=== PATIENT | female | born 1955 | race Caucasian/White ===

== ENCOUNTER 2016-05-23 01:12 | Inpatient (IN) ==
[2016-05-23] MEDS ORDERED: DIPRIVAN 1% 1,000 MG/100 ML BOTTLE ONE (01:13)
[2016-05-23] MEDS: DIPRIVAN 1% 1,000 MG/100 ML BOTTLE IV SCH ×7 (01:25→23:46)
[2016-05-23] MEDS ORDERED: NS 1,000 ML ONE (01:37)
[2016-05-23 01:44] LABS: URINE CULTURE NEEDED? NO; URINE MICRO REVIEW NEEDED? NO; URINE SOURCE CATH
[2016-05-23 01:44] LABS: MANUAL DIFF NEEDED? NO
[2016-05-23 01:50] LABS: BASO% 0.2 % (0.0-0.8); EOS# 0.14 X1000 (0.0-0.7); EOS% 0.9 % (0.0-10.0); HEMATOCRIT 40.2 % (37.0-47.0); HEMOGLOBIN 13.1 g/dL (12.0-16.0); IMM GRAN# 0.14 X1000 (0.0-0.04); IMM GRAN% 0.9 % (0.0-0.5); LYMPH# 3.53 X1000 (1.2-3.4); LYMPH% 23.9 % (20.5-51.1); MCH 33.2 PG (27-31); MCHC 32.6 g/dL (33-37); MCV 101.8 FL (81-99); MONO# 0.86 X1000 (0.11-0.59); MONO% 5.8 % (1.7-9.3); NEUT% 68.3 % (42.2-75.2); PLT 219 X1000 (130-400); RBC 3.95 XMIL (4.2-5.4)
[2016-05-23 01:52] LABS: BILIRUBIN URINE NEGATIVE (NEGATIVE); BLOOD URINE NEGATIVE (NEGATIVE); COLOR YELLOW; GLUCOSE URINE NEGATIVE (NEGATIVE); LEUKOCYTES URINE NEGATIVE (NEGATIVE); NITRITE URINE NEGATIVE (NEGATIVE); PH URINE 5.5; PROTEIN URINE 30 mg/dL (NEGATIVE); SP GRAVITY URINE 1.029; TURBIDITY URINE CLEAR (CLEAR); UROBILINOGEN URINE 3 mg/dL (NORMAL)
[2016-05-23 01:54] LABS: UR EPITHELIAL CELLS <10 /HPF (<10); URINE BACTERIA NEGATIVE /HPF; URINE RBC <10 /HPF (<10); URINE WBC <10 /HPF (<10)
[2016-05-23] MEDS ORDERED: NS 1,000 ML IV ONE ×2 (02:04→23:14)
[2016-05-23 02:12] LABS: AGAP 14; ALBUMIN 3.8 g/dL (3.5-5.0); ALKALINE PHOSPHATASE 72 U/L (32-104); BUN 19 mg/dL (8-22); CALCIUM 8.8 mg/dL (8.8-10.2); CHLORIDE 99 mmol/L (98-107); COSMO 288; GOT 12 U/L (10-30); GPT 11 U/L (10-36); POTASSIUM 3.9 mmol/L (3.5-5.1); SODIUM 141 mmol/L (136-145); TCO2 28 mmol/L (25-35); TOTAL BILIRUBIN 0.16 mg/dL (0.20-1.00); TOTAL PROTEIN 6.4 g/dL (6.3-8.3)
[2016-05-23 02:17] LABS: UR AMPHETAMINES QUAL NONE DETECTED (NONE DETECT); UR BARBITUATES QUAL NONE DETECTED (NONE DETECT); UR BENZODIAZEPIN QUAL PRESUMPTIVE POSITIVE (NONE DETECT); UR CANNABINOIDS QUAL PRESUMPTIVE POSITIVE (NONE DETECT); UR COCAINE QUAL NONE DETECTED (NONE DETECT); UR METHADONE QUAL NONE DETECTED (NONE DETECT); UR OPIATES QUAL PRESUMPTIVE POSITIVE (NONE DETECT); UR OXYCODONE QUAL NONE DETECTED (NONE DETECT); UR PCP QUAL NONE DETECTED (NONE DETECT)
[2016-05-23 02:29] LABS: ALLEN TEST YES; BE -0.2 mmoll (-3.0-3.0); BLOOD TYPE ARTERIAL; DRAW SITE R RADIAL; METHB 1.7 % (0.0-1.5); O2(CT) 14.7 mL/dL (15.0-23.0); PO2(98.6) 273 mmHg (60-100); SAMPLE BLOOD; SAO2 99.5 % (95.0-100.0); SRATE 12 BPM; THB 11.7 g/dL (11.5-17.4); TVOL 550 mL; pH(98.6) 7.31 (7.35-7.45)
[2016-05-23 02:31] LABS: MODALITY VENTILATOR; PCO2(98.6) 53 mmHg (35-45)
[2016-05-23] MEDS ORDERED: NORCURON ONE (03:02)
[2016-05-23] MEDS ORDERED: NORCURON IV ONE (03:07)
--- NOTE | 2016-05-23 05:08 | HISTORY AND PHYSICAL ---
Total critical care time with this patient was 38 minutes. PRIMARY CARE PHYSICIAN: She has no primary care physician. REASON FOR ADMISSION: Found unresponsive at home by her son. HISTORY OF PRESENT ILLNESS: Ms. Asha Bains is a 61-year-old lady who was admitted by me in February of this year for altered mental status secondary to pain medication intoxication. On this occasion, she was found by her son, unresponsive, along with her who is currently at [facility]. She was brought in to our facility and subsequently intubated for airway protection and also because patient had evidence of progressive respiratory acidosis. Currently, I am unable to get any history from the patient because she is on the ventilator and she is paralyzed at this point in time. There is no family member at bedside, especially since her is currently intubated at [facility] with possible cerebral damage. History is very limited as a result of this and I could not do a review of systems. The patient was last discharged and was cautioned by my colleagues about the use of her medication and that she needs to be supervised closely. ALLERGIES: No known allergies. MEDICATIONS: Could not confirm her medication list but her last medication list showed that she was on Ventolin, Lotrel, aspirin, Symbicort, Klonopin, Plavix, Nexium, Lasix, gabapentin, [place], niacin, Ranexa, Zocor, metformin. ALLERGIES: Per her records, no known allergies. SOCIAL HISTORY: Per her records, lives with her family. Smokes about a pack a day. SURGICAL HISTORY: She has had a CABG. That is pretty much it from her records that I could gather. LABORATORY WORK: EKG shows incomplete right bundle branch block with QT prolongation, sinus tachycardia with Q-waves in the inferior leads. Other laboratory work, white count 15,000, hemoglobin and hematocrit 13 and 40, platelets 219,000. Normal white cell differential. Glucose 118, BUN is 19, creatinine 0.9. Urine drug screen positive for opiates, benzodiazepines, and cannabinoids. Urinalysis is grossly unremarkable. ABG done on the ventilator initially was 7.31, pCO2 of 53, PO2 273 with a carboxyhemoglobin of 12.5. It was on assist control, FiO2 of 100, rate of 12, tidal volume of 550, and PEEP of 5. Chest x-ray reviewed by me shows cardiomegaly. I cannot see any gross infiltrates at this point in time. PHYSICAL EXAMINATION: GENERAL: Middle-aged who appears older than her stated age. She is completely paralyzed and sedated. HEENT: Pupils are miotic and slightly reactive to light. Head is normocephalic and atraumatic. Eyes: Anicteric and not pale. ENT and oropharyngeal exam could not be fully assessed. The patient has an ET tube and NG tube in place. No visual central cyanosis noted. NECK: Shows no JVD. No bruit heard. CHEST: Poor air entry heard. No wheezes or crepitations appreciated. CARDIOVASCULAR: First and second heart sounds heard. No gallops, murmurs, rubs. Rhythm is regular. ABDOMEN: Slightly protuberant, soft. No masses or organomegaly noted. Bowel sounds are hypoactive. RECTAL: Examination deferred at this time. EXTREMITIES: No edema, clubbing, or peripheral cyanosis. Pulses distally intact with good volume and they are symmetrical. NEUROLOGICAL: Examination difficult to assess since patient is paralyzed and sedated. SKIN: Grossly intact ventrally. MUSCULAR: Examination appears to be grossly normal. ASSESSMENT: 1. Acute on chronic respiratory failure secondary to inappropriate use of opioids, benzodiazepines, and polysubstance abuse. 2. Probable aspiration pneumonitis. 3. Chronic obstructive pulmonary disease. 4. Coronary artery disease. 5. Type 2 diabetes. 6. Questionable diastolic heart failure, last ejection fraction of 50-55% two years ago. 7. QT prolongation. PLAN: At this time, the patient will be managed on the ventilator until she stabilizes and then we can take off sedation and I will see how her respiratory status will respond. In the interim, empiric antibiotics, nebulizer treatments will be instituted. No role for steroids at this point in time. Cautious fluid resuscitation in light of her questionable history of diastolic heart failure. We will get an echocardiogram to update also for her current LV function. Aspirin rectally will be given and cardiac enzymes will be monitored. The patient's diabetes will be managed with Humalog low sliding scale. I also recommend managing her high blood pressure with probably IV hydralazine if needed. I have changed the patient's ventilator settings at this point in time but further ventilator management will be per Dr. Rodriguez. This patient is rather unfortunate, middle-aged, woman who needs some alternative form of pain control that does not involve benzodiazepines and opiates, as she has repeatedly shown that she is not capable of managing her medications. This is an issue that needs to be brought up prior to her discharge and she needs to get a primary care physician to assist with this. I recommend checking the patient's magnesium level in view of her QT prolongation and correcting it if it is abnormal. This is the reason why I have held off Levaquin so as not to aggravate things. If her white continues to escalate, would recommend adding on Levaquin for broader coverage. Critical care time with this patient was 38 minutes. cc: Tish Bowens MD
--- NOTE | 2016-05-23 06:36 | Diag Imaging Result Document ---
PROCEDURE NAME: HEAD/C-SPINE W/O CONTRAST - 05/23/2016 CT BRAIN AND CERVICAL SPINE WITHOUT: COMPARISON: The brain is compared to 01/24/2015. FINDINGS: No parenchymal hemorrhage. No epidural or subdural hematoma. No subarachnoid hemorrhage. No skull fracture. No mass identified on this noncontrasted exam. Cyst versus small old infarct in the left frontoparietal region. This is unchanged. No hydrocephalus. Small amount of mucus is found in the sinuses. IMPRESSION: 1. No hemorrhage. No injury. 2. Mild sinusitis. 3. Stable cyst versus tiny old infarct. CT CERVICAL SPINE WITHOUT CONTRAST: FINDINGS: There is good alignment to the cervical spine. No precervical soft tissue swelling. No subluxation. There is degenerative bone spurring throughout the mid and lower cervical spine. There are endotracheal and nasogastric tubes present. Prominent atherosclerosis. Multilevel spinal stenosis and neural foraminal narrowing most pronounced at C4-5 and C5-6. Further evaluation with an MRI may be beneficial. IMPRESSION: No acute bony injury. A preliminary report was given at 5:28 a.m.
[2016-05-23] MEDS ORDERED: NS 1,000 ML IV SCH ×2 (06:53→23:14)
[2016-05-23] MEDS ORDERED: SODIUM CHLORIDE 0.9% INJ ONE (06:53)
[2016-05-23] MEDS ORDERED: ZOFRAN IV PRN (06:53)
[2016-05-23] MEDS ORDERED: MORPHINE IV PRN (06:53)
[2016-05-23] MEDS: HUMALOG SUBQ SCH ×3 (07:09→19:36)
[2016-05-23] MEDS: LOVENOX SUBQ SCH (07:14)
--- NOTE | 2016-05-23 07:28 | Diag Imaging Result Document ---
PROCEDURE NAME: CHEST-PORTABLE - 05/23/2016 PORTABLE CHEST X-RAY: COMPARISON: 03/03/2016. FINDINGS: There is an endotracheal tube in good position. The nasogastric tube tip is difficult to see; this may be in the distal esophagus. There is improvement in the bibasilar infiltrates with some patchy linear atelectasis in the left lung base. Heart size remains top normal. IMPRESSION: Good endotracheal tube position. Nasogastric tube may be in the distal esophagus.
--- NOTE | 2016-05-23 07:33 | Diag Imaging Result Document ---
PROCEDURE NAME: CHEST-PORTABLE - 05/23/2016 PORTABLE CHEST X-RAY AT 0255 HOURS: COMPARISON: 0130 hours. FINDINGS: There is an endotracheal tube and orogastric tube in good position. Slight hazy left basilar infiltrate appear stable from prior. IMPRESSION: Endotracheal tube and orogastric tube are in good position.
[2016-05-23 07:39] LABS: MANUAL DIFF NEEDED? NO
[2016-05-23] MEDS ORDERED: ZOSYN IV SCH (08:00)
[2016-05-23] MEDS ORDERED: [UNRECOGNIZED DRUG - OTHER] IV SCH (08:00)
[2016-05-23 08:21] LABS: AGAP 14; ALBUMIN 3.5 g/dL (3.5-5.0); ALKALINE PHOSPHATASE 73 U/L (32-104); BUN 17 mg/dL (8-22); CALCIUM 9.1 mg/dL (8.8-10.2); CHLORIDE 105 mmol/L (98-107); COSMO 285; GOT 12 U/L (10-30); GPT 11 U/L (10-36); POTASSIUM 3.8 mmol/L (3.5-5.1); SODIUM 142 mmol/L (136-145); TCO2 23 mmol/L (25-35); TOTAL BILIRUBIN 0.23 mg/dL (0.20-1.00); TOTAL PROTEIN 6.7 g/dL (6.3-8.3)
[2016-05-23] MEDS: PROTONIX IV SCH (08:27)
[2016-05-23 08:38] LABS: BASO% 0.2 % (0.0-0.8); EOS% 0.2 % (0.0-10.0); HEMATOCRIT 40.3 % (37.0-47.0); HEMOGLOBIN 13.3 g/dL (12.0-16.0); IMM GRAN% 0.4 % (0.0-0.5); LYMPH% 24.7 % (20.5-51.1); MCH 32.8 PG (27-31); MCV 99.3 FL (81-99); MONO% 5.8 % (1.7-9.3); MPV 10.1 FL (7.4-10.4); NEUT% 68.7 % (42.2-75.2); PLT 183 X1000 (130-400); RBC 4.06 XMIL (4.2-5.4)
[2016-05-23 08:39] LABS: EOS# 0.02 X1000 (0.0-0.7); IMM GRAN# 0.04 X1000 (0.0-0.04); LYMPH# 2.66 X1000 (1.2-3.4); MONO# 0.62 X1000 (0.11-0.59)
[2016-05-23] MEDS: ZOSYN 3.375 GM/NS 3.375 GM/50 ML IVPB IV SCH ×3 (08:47→20:46)
[2016-05-23 08:53] LABS: ALLEN TEST YES; BE 2.9 mmoll (-3.0-3.0); BLOOD TYPE ARTERIAL; DRAW SITE L RADIAL; METHB 1.7 % (0.0-1.5); O2(CT) 17.4 mL/dL (15.0-23.0); PCO2(98.6) 32 mmHg (35-45); PO2(98.6) 118 mmHg (60-100); SAMPLE BLOOD; SAO2 99.2 % (95.0-100.0); SRATE 15 BPM; THB 12.9 g/dL (11.5-17.4); TVOL 50 mL; pH(98.6) 7.51 (7.35-7.45)
[2016-05-23] MEDS ORDERED: ASPIRIN PR SCH (09:00)
--- NOTE | 2016-05-23 09:53 | Diag Imaging Result Document ---
PROCEDURE NAME: CHEST-PORTABLE - 05/23/2016 PORTABLE CHEST X-RAY AT 0840 HOURS: COMPARISON: 0255 hours. FINDINGS: Stable endotracheal tube and gastric tube in good position. Stable hazy bibasilar infiltrates, left greater than right. Stable cardiomegaly. IMPRESSION: No complication or change from prior.
[2016-05-23 09:57] LABS: MODALITY VENTILATOR
--- NOTE | 2016-05-23 13:45 | CONSULTATION ---
DATE OF CONSULTATION: 05/23/2016 REFERRING PHYSICIAN: and Dr. Reynoso. CHIEF COMPLAINT: Evaluation for respiratory failure, ventilator management. HISTORY OF PRESENTING ILLNESS: This is a 61-year-old female with past medical history of COPD, who presented to the hospital being found unresponsive with overdose possible to benzos and opioids, pneumonia aspiration is possible. PAST MEDICAL HISTORY: In brief includes COPD. Not much more information available at this point. Coronary artery disease. PAST SURGICAL HISTORY: Coronary artery bypass graft. SOCIAL HISTORY: Lives with family. Active smoker. ALLERGIES: No known drug allergies. MEDICATIONS: At home and in the hospital were reviewed. REVIEW OF SYSTEMS: As detailed in history of presenting illness, otherwise noncontributory. MEDICATIONS: In the hospital include nebulized treatment, aspirin, DVT prophylaxis with Lovenox, Haldol p.r.n., Diprivan, morphine, Zosyn, Protonix and IV fluid hydration with 75 mL of normal saline an hour. PHYSICAL EXAM: Vital Signs: Noted. General: She is sedated. Head and Neck: Examined. Trachea midline. Chest Exam: Good entry bilaterally. Cardiac Examination: S1, S2. Abdomen: Nontender. Limbs: No pedal edema. Neurologic: Exam is sedated. LABS AND INVESTIGATIONS: Head CT, chest x-ray, CBC, CMP, ABG and other labs were reviewed. WBC is 10.75, was 14.9. Creatinine 0.6, potassium 3.8, hemoglobin 13.3. ABGs pH 7.51, pCO2 32, PO2 118 on assist control of 15, 70% FiO2 reduced to 60% and tidal volume of 550, PEEP of 5. ASSESSMENT AND PLAN: 61-year-old female with history of coronary artery disease, COPD admitted with unconsciousness with drug overdose possibly with benzos and opioids. Pneumonia is possible and respiratory failure. Continue with current vent management. Weaning trial in the a.m. Antibiotics as ordered. DVT, GI prophylaxis. Thank you for the courtesy of this consultation. cc: Qian Parada MD
[2016-05-23] MEDS: DUONEB (A & A) INH SCH ×3 (18:04→22:34)
--- NOTE | 2016-05-23 19:54 | ECHO REPORT ---
ORDER DATE: 05/23/2016 INTERPRETING PHYSICIAN: Dr. Ziegler REQUESTING PHYSICIAN: CLINICAL INDICATIONS: Requested for evaluation of respiratory failure. Suspected congestive failure. Previous bypass surgery. M-MODE MEASUREMENTS: Right ventricle: 3.3 cm. Left ventricle end diastole: 4.0 cm. Left ventricle end systole: 3.7 cm. Posterior wall: 1.4 cm. Interventricular septum: 1.4 cm. Left atrium: 4.6 cm. Aortic root: 3.0 cm. SUMMARY OF 2-DIMENSIONAL IMAGING: The left ventricular function is probably normal. Ejection fraction estimated to be in the range of 55-60%. There is questionable wall motion abnormality at the level of the basal inferior wall. Again, this study is less than optimal. It probably should be repeated after the patient is extubated. The right ventricle appears to be mildly enlarged. It shows good function. The left atrium appears to be mildly enlarged. There is dense calcification of the mitral annulus. The mitral valve opens normally. Color flow mapping indicates a mild degree of regurgitation. Pulse wave Doppler of mitral inflow shows relatively normal E/A ratio. Tissue Doppler of septal and lateral mitral annulus averages 5.5 cm per second. There is impaired left ventricular relaxation. The pulmonic valve looks normal. Color flow mapping unremarkable. The tricuspid valve shows a mild degree of regurgitation. The inferior vena cava is not dilated. Pulmonary pressure is estimated at 28 mmHg. The aortic valve shows calcification of the cusps without definite stenosis. The maximum gradient across the outflow trace of the left ventricle is 11 mmHg, mean gradient is 6, indicating that there is no evidence of stenosis. There is no pericardial effusion, masses or thrombus. Clinical correlation recommended. cc: MD Tish River MD
[2016-05-24] MEDS: HUMALOG SUBQ SCH ×4 (01:21→20:16)
--- NOTE | 2016-05-24 01:41 | ED EKG INTERP ---
This chart was entered by Cailin Zavala Scribe, acting as scribe for Km Maloney MD. EKG Interpretation - EKG Time of EKG reading by physician:: 01:20 EKG Read and Signed by:: Km Maloney EKG Interpretation (*Must complete 3 of following elements*): Abnormal Rate: 101 Rhythm: ST QRS: other (POSS LAE, INFERIOR INFARCT, AGE UNDETERMINED, PROLONGED QT, LEFT ANTERIOR LEONARDO BLOCK) Prior EKG Comparison: changes noted This chart was documented by the indicated scribe, (Cailin Zavala Scribe) and accurately reflects the services I performed and decisions made by , Km Maloney MD, as attested by the provider's signature.
[2016-05-24] MEDS: ZOSYN 3.375 GM/NS 3.375 GM/50 ML IVPB IV SCH ×4 (02:13→20:00)
--- NOTE | 2016-05-24 02:25 | PROGRESS NOTE ---
DATE: 05/23/2016 ADDENDUM REPORT: The patient is seen. She is intubated, sedated. She does wake up, but she is still not appropriate. We will progress with ventilator weaning and follow closely. There was some discussion of cerebral edema, but the head CT is not read that way. We will continue ventilator care and monitor her very closely. We are waiting on cardiac testing results and follow closely. She is on DVT and GI prophylaxis. We will continue to monitor. cc: Gregor Reynoso MD
[2016-05-24] MEDS: DUONEB (A & A) INH SCH ×6 (03:05→22:32)
[2016-05-24] MEDS: DIPRIVAN 1% 1,000 MG/100 ML BOTTLE IV SCH ×2 (03:10→06:06)
[2016-05-24 04:35] LABS: ALLEN TEST YES; BE -1.2 mmoll (-3.0-3.0); BLOOD TYPE ARTERIAL; DRAW SITE R RADIAL; METHB 1.8 % (0.0-1.5); O2(CT) 14.7 mL/dL (15.0-23.0); PCO2(98.6) 31 mmHg (35-45); PO2(98.6) 104 mmHg (60-100); SAMPLE BLOOD; SAO2 98.9 % (95.0-100.0); SRATE 16 BPM; THB 10.8 g/dL (11.5-17.4); TVOL 550 mL; pH(98.6) 7.46 (7.35-7.45)
[2016-05-24 04:36] LABS: MODALITY VENTILATOR
[2016-05-24 04:54] LABS: MANUAL DIFF NEEDED? NO
[2016-05-24 05:00] LABS: BASO% 0.1 % (0.0-0.8); EOS# 0.12 X1000 (0.0-0.7); EOS% 1.1 % (0.0-10.0); HEMATOCRIT 37.2 % (37.0-47.0); IMM GRAN# 0.06 X1000 (0.0-0.04); IMM GRAN% 0.5 % (0.0-0.5); LYMPH# 1.97 X1000 (1.2-3.4); LYMPH% 17.9 % (20.5-51.1); MCH 32.1 PG (27-31); MCHC 32.3 g/dL (33-37); MCV 99.5 FL (81-99); MONO# 0.68 X1000 (0.11-0.59); MONO% 6.2 % (1.7-9.3); MPV 11.1 FL (7.4-10.4); NEUT% 74.2 % (42.2-75.2); PLT 155 X1000 (130-400); RBC 3.74 XMIL (4.2-5.4)
[2016-05-24 05:20] LABS: AGAP 16; BUN 15 mg/dL (8-22); CALCIUM 7.7 mg/dL (8.8-10.2); CHLORIDE 109 mmol/L (98-107); COSMO 285; POTASSIUM 3.9 mmol/L (3.5-5.1); SODIUM 143 mmol/L (136-145); TCO2 18 mmol/L (25-35)
--- NOTE | 2016-05-24 06:37 | EKG Report ---
Test Performed on : 05/24/2016 05:48:46 AM Test Reason : resp failure Blood Pressure : / mmHG Vent. Rate : 073 BPM Atrial Rate : 073 BPM P-R Int : 166 ms QRS Dur : 094 ms QT Int : 448 ms P-R-T Axes : 062 039 029 degrees QTc Int : 493 ms Sinus rhythm. with frequent premature ventricular complexes. Inferior infarct (cited on or before 24-JAN-2015) Abnormal ECG When compared with ECG of 03-MAR-2016 17:44, premature ventricular complexes. are now present premature atrial complexes. are no longer present Borderline criteria for Anterior infarct are no longer present Borderline criteria for Anterolateral infarct are no longer present Confirmed by Judy PAREDES, Dannie Schroeder ([id number]) on 05/24/2016 9:51:16 PM
--- NOTE | 2016-05-24 07:33 | Diag Imaging Result Document ---
PROCEDURE NAME: CHEST-PORTABLE - 05/24/2016 AP PORTABLE CHEST ERECT AT 0505 HOURS: FINDINGS: There is an endotracheal tube with its tip at the thoracic inlet and an NG tube with its tip below the diaphragm. There is hazy opacity in the left lower lobe. This was also the case on 04/22/2016. The lungs are generally somewhat poorly expanded. The possibility of generalized mild interstitial pulmonary edema cannot be excluded. IMPRESSION: Mild pulmonary edema with left lower lobe atelectasis versus pneumonia.
[2016-05-24] MEDS ORDERED: SODIUM CHLORIDE 0.9% 10 ML ONE (08:26)
[2016-05-24] MEDS: LOVENOX SUBQ SCH (08:29)
[2016-05-24] MEDS: PROTONIX IV SCH (08:29)
[2016-05-24] MEDS: ASPIRIN PO SCH (08:29)
[2016-05-24] MEDS: HALDOL IV PRN ×5 (09:07→22:19)
--- NOTE | 2016-05-24 09:37 | PROGRESS NOTE ---
DATE: 05/24/2016 SUBJECTIVE: The patient intubated and sedated. She does wake up, but she still gets periodically confused, agitated. OBJECTIVE: Vital Signs: Blood pressure 131/56, heart rate of 80, respiratory rate 16, temperature 99.2 degrees, satting 95% on 50%. She is currently on 40 and saturations are 96. Cardiovascular: Regular rate and rhythm. Pulmonary: No wheezes or rales. GI: Soft, nontender, nondistended. Extremities: No clubbing or cyanosis. Lymphatic exam: No peripheral edema. Neurological exam: Nonfocal. LABORATORY DATA: Her white count was 10.9, hemoglobin and hematocrit 12 and 37, platelets 155. The pH is 7.46, pCO2 31, PaO2 104. CMP was normal. IMAGING: Chest x-ray showed pulmonary edema and possibly a left lower lobe infiltrate. PROBLEM LIST: 1. Acute respiratory failure secondary to drug overdose. We were going to plan on a vent weaning trial today. Pulmonary is following. She has pneumonia, so we are covering her with antibiotics. 2. Left lower lobe pneumonia. We will continue empiric antibiotics and follow clinically. 3. Pulmonary edema, could be reactive. I am going to check a proBNP and we will evaluate further. She is on Lasix at home. I am going to give her a trial of diuretics today. 4. Drug poly chronic pain disorder with chronic pain medications. We will have to discuss about adjusting her medicines just because she tends, according to the family, when she gets her medications adjusted she gets over-sedated and this has happened before. We will continue to follow very closely. DISPOSITION: Pending her clinical course. cc: Gregor Reynoso MD
[2016-05-24] MEDS: LASIX IV SCH ×2 (10:05→20:00)
[2016-05-24 10:29] LABS: ALLEN TEST NO; BE -0.5 mmoll (-3.0-3.0); BLOOD TYPE ARTERIAL; DRAW SITE R BRACHIAL; METHB 1.6 % (0.0-1.5); O2(CT) 16.6 mL/dL (15.0-23.0); PCO2(98.6) 39 mmHg (35-45); PO2(98.6) 68 mmHg (60-100); SAMPLE BLOOD; SAO2 95.8 % (95.0-100.0); THB 12.7 g/dL (11.5-17.4)
[2016-05-24 10:33] LABS: MODALITY VENTILATOR
[2016-05-24] MEDS: MORPHINE IV PRN ×2 (14:04→21:37)
[2016-05-25] MEDS: DUONEB (A & A) INH SCH ×6 (02:36→22:41)
[2016-05-25] MEDS: ZOSYN 3.375 GM/NS 3.375 GM/50 ML IVPB IV SCH ×4 (03:10→20:08)
[2016-05-25] MEDS: HUMALOG SUBQ SCH ×4 (03:18→22:14)
[2016-05-25 04:54] LABS: ALLEN TEST YES; BE 5.9 mmoll (-3.0-3.0); BLOOD TYPE ARTERIAL; DRAW SITE R RADIAL; PCO2(98.6) 39 mmHg (35-45); PO2(98.6) 67 mmHg (60-100); SAMPLE BLOOD; pH(98.6) 7.49 (7.35-7.45)
[2016-05-25 04:55] LABS: MODALITY COOL AEROSOL
[2016-05-25] MEDS: MORPHINE IV PRN ×3 (05:14→21:49)
[2016-05-25 06:15] LABS: MANUAL DIFF NEEDED? NO
[2016-05-25 06:22] LABS: BASO% 0.2 % (0.0-0.8); EOS# 0.05 X1000 (0.0-0.7); EOS% 0.4 % (0.0-10.0); HEMATOCRIT 41.2 % (37.0-47.0); HEMOGLOBIN 13.9 g/dL (12.0-16.0); IMM GRAN# 0.06 X1000 (0.0-0.04); IMM GRAN% 0.5 % (0.0-0.5); LYMPH# 1.67 X1000 (1.2-3.4); LYMPH% 12.9 % (20.5-51.1); MCH 32.8 PG (27-31); MCHC 33.7 g/dL (33-37); MCV 97.2 FL (81-99); MONO% 8.5 % (1.7-9.3); MPV 10.3 FL (7.4-10.4); NEUT% 77.5 % (42.2-75.2); PLT 192 X1000 (130-400); RBC 4.24 XMIL (4.2-5.4)
[2016-05-25 06:44] LABS: AGAP 20; BUN 12 mg/dL (8-22); CALCIUM 8.7 mg/dL (8.8-10.2); CHLORIDE 100 mmol/L (98-107); COSMO 289; POTASSIUM 2.6 mmol/L (3.5-5.1); SODIUM 145 mmol/L (136-145); TCO2 25 mmol/L (25-35)
--- NOTE | 2016-05-25 07:36 | Diag Imaging Result Document ---
PROCEDURE NAME: CHEST-1 VIEW - 05/25/2016 PORTABLE CHEST: COMPARISON: 05/24/2016. FINDINGS: Sternal wires are present. The lungs are well expanded. The heart is not enlarged. Mild central vascular prominence. Pulmonary vasculature is less distended than on the prior study. No pleural effusions identified. Interval removal of the endotracheal and nasogastric tubes. No consolidation. IMPRESSION: Interval improvement.
[2016-05-25] MEDS: LOVENOX SUBQ SCH (07:42)
[2016-05-25] MEDS ORDERED: SODIUM CHLORIDE 0.9% 10 ML ONE (08:11)
[2016-05-25] MEDS: PROTONIX IV SCH (08:15)
[2016-05-25] MEDS: ASPIRIN PO SCH (08:16)
[2016-05-25] MEDS ORDERED: KLOR-CON PO ONE (10:13)
[2016-05-25] MEDS ORDERED: NORCO-10 PO PRN (10:14)
--- NOTE | 2016-05-25 10:58 | PROGRESS NOTE ---
DATE: 05/25/2016 SUBJECTIVE: The patient has no focal complaints. She looks much more awake, alert. She was 99% on 40% face mask, but she is on nasal cannula now. OBJECTIVE: Temperature 97.4 degrees, heart rate 81, respiratory 21, blood pressure 172/80. PHYSICAL EXAMINATION: Cardiovascular: Regular rate and rhythm. Pulmonary: Bilateral breath sounds. Clear to auscultation. GI was soft, nontender, nondistended. Bowel sounds are positive. Extremities: No clubbing or cyanosis. Lymphatics: No peripheral edema. Neurologic exam was nonfocal. LABORATORY DATA: White count 12.9, hemoglobin and hematocrit 13 and 41, platelets 192,000. Blood gas: pH 7.49, pCO2 of 39, PaO2 of 67 on 40%. Chest x-ray shows interstitial infiltrates but, overall, improved and improvement in pulmonary vascular congestion. PROBLEM LIST: 1. Acute respiratory failure secondary to drug overdose. This seems to have resolved. She is off the vent. Obviously extubated yesterday, and we are weaning O2. Possible aspiration pneumonitis, so she is on antibiotics. She is currently getting any steroids but her white count has increased somewhat, so we will keep an eye on that at this point. She has not had blood cultures but her urine on admission was unremarkable. I am going to repeat her urine. Obviously, we are following her blood counts and then her white count and then also her chest x-rays. We will continue to monitor very closely. 2. Chronic pain medication. We will continue to follow. She will reorder her medications. 3. Coronary artery disease. She does have a little bit of interstitial edema but has overall improved. 4. Hypokalemia. We will supplement and follow. Likely related to diuretic therapy. DISPOSITION: I think she is stable to go to the step-down unit. Continue to monitor closely. cc: Gregor Reynoso MD
[2016-05-25] MEDS: POTASSIUM CHLORIDE 20 MEQ/SWI 20 MEQ/100 ML IVPB IV SCH ×2 (11:03→15:06)
[2016-05-25 16:18] LABS: URINE CULTURE NEEDED? NO; URINE MICRO REVIEW NEEDED? NO; URINE SOURCE CATH
[2016-05-25 16:21] LABS: BILIRUBIN URINE NEGATIVE (NEGATIVE); BLOOD URINE MODERATE (NEGATIVE); COLOR YELLOW; GLUCOSE URINE NEGATIVE (NEGATIVE); LEUKOCYTES URINE NEGATIVE (NEGATIVE); NITRITE URINE NEGATIVE (NEGATIVE); PROTEIN URINE 50 mg/dL (NEGATIVE); SP GRAVITY URINE 1.018; TURBIDITY URINE CLEAR (CLEAR); UROBILINOGEN URINE NORMAL (NORMAL)
[2016-05-25 16:22] LABS: UR EPITHELIAL CELLS <10 /HPF (<10); URINE BACTERIA NEGATIVE /HPF; URINE RBC TNTC /HPF (<10); URINE WBC <10 /HPF (<10)
[2016-05-25] MEDS: SYMBICORT 160/4.5 MICROGM INHALER INH SCH (19:20)
[2016-05-25] MEDS: RANEXA PO SCH (20:08)
[2016-05-25] MEDS: KLONOPIN PO SCH (20:08)
[2016-05-25] MEDS ORDERED: LIPITOR PO SCH (21:00)
[2016-05-25] MEDS ORDERED: TYLENOL PO PRN (23:18)
[2016-05-26] MEDS ORDERED: PNEUMOVAX 23 IM ONE (00:57)
[2016-05-26] MEDS: ZOSYN 3.375 GM/NS 3.375 GM/50 ML IVPB IV SCH ×2 (02:25→09:21)
[2016-05-26] MEDS: HUMALOG SUBQ SCH (02:58)
[2016-05-26] MEDS: DUONEB (A & A) INH SCH ×3 (03:01→11:09)
[2016-05-26 05:16] LABS: MANUAL DIFF NEEDED? NO
[2016-05-26 05:20] LABS: BASO% 0.2 % (0.0-0.8); EOS# 0.15 X1000 (0.0-0.7); EOS% 1.4 % (0.0-10.0); HEMATOCRIT 43.8 % (37.0-47.0); HEMOGLOBIN 14.6 g/dL (12.0-16.0); IMM GRAN# 0.05 X1000 (0.0-0.04); IMM GRAN% 0.5 % (0.0-0.5); LYMPH# 2.18 X1000 (1.2-3.4); LYMPH% 20.1 % (20.5-51.1); MCH 32.4 PG (27-31); MCHC 33.3 g/dL (33-37); MCV 97.3 FL (81-99); MONO% 10.1 % (1.7-9.3); MPV 10.4 FL (7.4-10.4); NEUT% 67.7 % (42.2-75.2); PLT 201 X1000 (130-400)
[2016-05-26 05:45] LABS: AGAP 14; BUN 13 mg/dL (8-22); CALCIUM 8.9 mg/dL (8.8-10.2); CHLORIDE 104 mmol/L (98-107); COSMO 283; POTASSIUM 3.9 mmol/L (3.5-5.1); SODIUM 142 mmol/L (136-145); TCO2 24 mmol/L (25-35)
[2016-05-26] MEDS: MORPHINE IV PRN (06:31)
--- NOTE | 2016-05-26 08:22 | Diag Imaging Result Document ---
PROCEDURE NAME: CHEST-1 VIEW - 05/26/2016 PORTABLE CHEST: Compared with 05/25/2016. FINDINGS: There is mild atelectasis at the right base which has decreased. The remainder of the lungs appear essentially clear. There is no substantial pleural effusion or pneumothorax identified. Heart size is within normal limits. IMPRESSION: Mild right basilar atelectasis which has decreased.
[2016-05-26] MEDS: SYMBICORT 160/4.5 MICROGM INHALER INH SCH (08:51)
[2016-05-26] MEDS ORDERED: PLAVIX PO SCH (09:00)
[2016-05-26] MEDS ORDERED: LASIX PO SCH (09:00)
[2016-05-26] MEDS ORDERED: LOTREL 5/10 MG PO SCH (09:00)
[2016-05-26] MEDS: LOVENOX SUBQ SCH (09:19)
[2016-05-26] MEDS: KLONOPIN PO SCH (09:20)
[2016-05-26] MEDS: ASPIRIN PO SCH (09:20)
[2016-05-26] MEDS: RANEXA PO SCH (09:21)
[2016-05-26 11:07] VITALS: BP 197/93
[2016-05-26] MEDS ORDERED: NEUTRA-PHOS PO ONE (12:22)
--- NOTE | 2016-05-26 20:19 | DISCHARGE SUMMARY ---
ADMISSION DATE: 05/23/2016 DISCHARGE DATE: 05/26/2016 DISCHARGE DIAGNOSES: 1. Acute respiratory failure associated with drug intoxication. 2. Aspiration pneumonitis. 3. Chronic obstructive pulmonary disease. 4. Coronary artery disease. 5. Diabetes. ADMISSION DIAGNOSES: 1. Acute respiratory failure associated with drug intoxication. 2. Aspiration pneumonitis. 3. Chronic obstructive pulmonary disease. 4. Coronary artery disease. 5. Diabetes. HOSPITAL COURSE: Briefly, this is a pleasant 61-year-old female who came in for unresponsiveness. She had recently been to her pain doctor apparently. Her daughter I have not spoken with, but reportedly when her pain medication is adjusted, she has episodes like this where she gets over- sedated. She initially presented to [place]. There was concern over cerebral damage. I am not sure if that was based on the CT findings or CT interpretation. The radiological interpretation here was negative for cerebral edema or infarct or what have you. She may have had a small infarct versus cyst. In any case, the patient progressed. She had been intubated. Pulmonary was consulted. She was extubated on the without difficulty per Dr. Parada and intubation I think was more for minimal responsiveness, airway protection than true respiratory failure. She had been empirically placed on Zosyn for aspiration. This was maintained during her stay here. She was placed back on her regular medications. Her chest x-ray prior to discharge which was actually on the showed some atelectasis at the right which was decreased. LABORATORY DATA: Her white count went as high as 12.9 and is 10.8 at time of discharge. The rest of labs were stable. She did have evidence of a little bit of hematuria, but no cultures were completed during this course. In any case, patient clinically stabilized. She was felt stable for discharge on the . She was on her usual oxygen and saturating 99%. Vital signs were stable, but hypertensive, but I do not think she had gotten her medications yet this morning. DISCHARGE MEDICATIONS: 1. Ventolin q.6 hours. 2. Amlodipine. 3. Benazepril 10/20 daily. 4. Augmentin 875 q.12 hours for 7 days. 5. Atorvastatin 80 daily. 6. Budesonide. 7. Formoterol 6.9 g b.i.d. 8. Klonopin 1 b.i.d. 9. Plavix 75 daily. 10. Lasix 40 daily. 11. [place] p.r.n. 12. Ranexa 500 b.i.d. DISCHARGE CONDITION: Stable. She is to follow up with her primary care physician, who I believe is Dr. Brandon in 1-2 weeks. Return for worsening shortness of breath. She was also told to re- evaluate with her chronic pain specialist about adjusting her medications just due to over- sedation. TIME SPENT: 32 minute discharge. cc: Gregor Reynoso MD
--- NOTE | 2016-06-05 14:59 | PROVIDER DOCUMENTATION ---
This chart was entered by Cailin Zavala Scribe, acting as scribe for Km Stephenson MD. [id number] Abuse/Overdose - General Chief Complaint: Overdose Stated Complaint: OVERDOSE Time Seen by Provider: 05/23/16 01:39 Source: EMS Allergies/Adverse Reactions: Allergies Allergy/AdvReac Type Severity Reaction Status Date / Time No Known Allergies Allergy Verified 05/23/16 01:36 Home Medications: Home Medication List Medication Instructions Recorded Confirmed Last Taken Type Clopidogrel [Plavix] 75 mg PO DAILY 12/06/13 05/25/16 05/15/16 09:00 History Furosemide [Lasix] 40 mg PO DAILY #0 tablet 12/08/13 05/25/16 05/22/16 09:00 Rx Ranolazine E.r. [Ranexa] 500 mg PO BID 05/19/14 05/25/16 05/22/16 21:00 History AMLODIPINE/BENAZEpril [Lotrel 5/10 10 - 20 each PO DAILY 03/03/16 05/25/1605/22 09:00 History mg] Albuterol Sulfate Inhaler 2 puff INH Q6H PRN PRN #2 inhaler 03/06/16 05/25/16 21:00 Rx [Ventolin Hfa] Budesonide/Formoterol Inhaler 2 puff INH RTBID #2 inhaler 03/06/16 05/25/16 09:00 Rx [Symbicort 160/4.5 Microgm Inhaler] Clonazepam [Klonopin] 1 mg PO BID #60 tablet 03/06/16 05/25/16 05/23/16 09:00 Rx Hydrocodone/Acetaminophen [Margaret 10 - 325 mg PO PRN PRN #20 tablet 03/06/1605/23/16 09:00 Rx 10-325 Tablet] Atorvastatin Calcium 1 tab PO QHS 05/25/16 05/25/16 05/22/16 21:00 History Amoxicillin/Potassium Clav 1 each PO Q12H #14 tablet 05/26/16 Unknown Rx [Augmentin 875-125 Tablet] - History of Present Illness-Drug/Alcohol Nature of Presenting Problem: PT IS A 61YOF PRESENTING TO THE ED C/O POSS OD. EMS FROM [facility] PRESENTED WITH A PT UNRESPONSIVE3 AND INTUBATED. EMS SATES THEY ARRIVED ON SCENE AND FOUND 2 PEOPLE UNRESPONSIVE FORM POSSIBLE OD. PT WAS FOUND IN HER BED WITH SEVERAL PILL BOTTLES NEXT TO HER. PT HAD A RX FOR O[place]NA 5MG BUT IT WAS ACTUAL 150MG TRAZADONE IN BOTTLE ALONG WITH GABAPENTIN AND PLAVIX. PER EMS THEY GAVE 4MG NARCAN ENROUTE WITH OUT ANY CHANGE IN STATUS AND THAT SHE ALSO VOMITED X2 AND POSSIBLY ASPIRATED. NO OTHER HISTORY OR INFO KNOWN AT THIS TIME. This episode of drinking or use began:: just prior to arrival Severity: reports: moderate, severe Situational problems related to:: reports: N/A Psychiatric Complaints: reports: altered mental status, other (UNK) Associated Symptoms: reports: other (FOUND UNRESPONSIVE) Any injuries associated with this episode of intoxication?: No Similar Symptoms Previously?: No Recently seen or treated by another doctor?: No - Substance Abuse Substance Use: reports: other (UNKN) - Alcohol Abuse Type and amount of last drink?: UNKN Review of Systems - Adult - REVIEW OF SYSTEMS - ADULT ROS:: unobtainable per condition Constitutional: reports: no symptoms reported Eyes: reports: no symptoms reported Ears, Nose, Mouth & Throat: reports: no symptoms reported Cardiovascular: reports: no symptoms reported Respiratory: reports: no symptoms reported Gastrointestinal: reports: no symptoms reported Genitourinary: reports: no symptoms reported Musculoskeletal: reports: no symptoms reported Integumentary: reports: no symptoms reported Neurological: reports: no symptoms reported Psychiatric: reports: no symptoms reported Endocrine: reports: no symptoms reported Hematologic/Lymphatic: reports: no symptoms reported Allergic/Immunologic: reports: no symptoms reported All Other Systems: Reviewed and Negative Past History - Adult - PAST MEDICAL HISTORY-ADULT Review of Records: reports: Old Records Reviewed, Nursing Assessment Review, Medications Reviewed, Social history reviewed & non-contributory. Major Childhood Illnesses: reports: denies history Cardiovascular: reports: CHF, HTN Respiratory: reports: COPD Gastrointestinal: reports: denies history Obstetrical/Gynecological: reports: denies history Genitourinary: reports: denies history Musculoskeletal: reports: chronic pain Neurological: reports: denies history Endocrine/Immune: reports: Diabetes Other Conditions: reports: denies history - PRIOR SURGERIES/PROCEDURES Surgical/Procedure History: reports: CABG - IMMUNIZATION STATUS Childhood Immunizations: See Nurse Assessment Flu Vaccine: See Nurse Assessment - FAMILY HISTORY Family History: reviewed, not pertinent Physical Exam-General - PHYSICAL EXAM-ADULT Initial Vital Signs Reviewed: Yes - CONSTITUTIONAL General Appearance: moderate distress, severe distress, other (UNRESPONSIVE) - EYES Eyes: sunken eyes - HEAD, EARS, NOSE, MOUTH & THROAT HENMT: normocephalic/atraumatic, moist mucous membranes, normal ENT inspection, TMs normal, pharynx normal - NECK Neck: supple, normal inspection. negative: non-tender, full range of motion - RESPIRATORY Respiratory: chest non-tender, no pleuratic chest pain, no accessory muscle use , respiratory distress, rhonchi. negative: lungs clear, normal breath sounds, no respiratory distress - CARDIOVASCULAR Cardiovascular: normal peripheral pulses, regular rate, rhythm, no edema, no gallop, no JVD, no murmur - GASTROINTESTINAL (ABDOMEN) Abdominal Exam: normal bowel sounds, non tender, soft, no organomegaly, no pulsatile mass - LYMPHATIC Lymphatic: enlargement (SUBMANDIBULAR ADENOPATHY) - MUSCULOSKELETAL Back Exam: normal inspection, no CVA tenderness, no vertebral tenderness Extremity: no pedal edema, no calf tenderness, normal capillary refill, pelvis stable. negative: normal range of motion, non-tender, normal gait, normal inspection - SKIN Integumentary: normal color, normal turgor, warm/dry - NEUROLOGIC Neurologic: abnormal cerebellar tests, abnormal fish smoker II-XII, motor weakness, sensory deficit. negative: fish smoker II-XII nml as tested, grossly normal, no motor/ sensory deficits, abnormal gait - PSYCHIATRIC Psych/Mental Status: disoriented x 3, depressed affect. negative: normal mood/ affect, normal thought content, normal thought process, oriented x 3 Progress - PLAN OF CARE/RESULTS Progress/Plan/Lab Results: Orders Category Date Time Status Admit - [facility] Routine AdmDCTranf 05/23/16 06:53 Ordered Activity - Up with Assistance ORDERED Care 05/23/16 06:53 Active FSBS/Accucheck Result Q6HR Care 05/23/16 06:53 Active Intake and Output-Strict ORDERED Care 05/23/16 06:53 Active Nursing- MD Consult Request ROUTINE Care 05/23/16 06:53 Completed Vital Signs Order Q 4-HR ASSESS Care 05/23/16 06:53 Completed Physician/Provider Consults Routine Cons 05/23/16 06:53 Ordered NPO Diet 04/13/17 03:59 Completed CHEST-PORTABLE [RAD] Routine Exams 05/23/16 08:00 Completed CHEST-PORTABLE [RAD] Stat Exams 05/23/16 01:28 Completed CHEST-PORTABLE [RAD] Stat Exams 05/23/16 02:51 Completed HEAD/C-SPINE W/O CONTRAST [CT] Stat Exams 05/23/16 02:58 Completed ABG [RESP] Routine Lab 05/23/16 02:20 Completed ABG [RESP] Routine Lab 05/23/16 08:40 Completed CBC WITH DIFF [HEME] Routine Lab 05/23/16 07:10 Completed CBC WITH ELECTRONIC DIFF [HEME] Stat Lab 05/23/16 01:40 Completed COMPREHENSIVE METABOLIC PANEL [CHEM] Routine Lab 05/23/16 07:10 Completed COMPREHENSIVE METABOLIC PANEL [CHEM] Stat Lab 05/23/16 01:10 Completed MAGNESIUM [CHEM] Routine Lab 05/24/16 03:55 Completed MAGNESIUM [CHEM] Stat Lab 05/23/16 07:10 Completed TROPONIN T Lab 05/23/16 14:16 Completed TSH Stat Lab 05/23/16 07:10 Completed UA NIMS W/REFLEX CULT [URINALYSIS] Stat Lab 05/23/16 01:40 Completed URINE DRUG SCREEN Stat Lab 05/23/16 01:17 Completed 0.9% Sodium Chloride Inj [Ns] 1,000 ml Med 05/23/16 01:37 Discontinued .ROUTE As Directed 0.9% Sodium Chloride Inj [Ns] 1,000 ml Med 05/23/16 06:53 Discontinued IV 75 mls/hr 0.9% Sodium Chloride Inj [Ns] 1,000 ml Med 05/23/16 02:04 Discontinued IV 999 mls/hr Albuterol 2.5MG/Ipratrop 0.5MG [Duoneb (A & A)] Med 05/23/16 07:30 Discontinued 3 ml INH RTQ4H Aspirin Med 05/23/16 09:00 Discontinued 300 mg NV DAILY Enoxaparin [Lovenox] Med 05/23/16 08:00 Discontinued 40 mg SUBQ Q24H Insulin Lispro [Humalog] Med 05/23/16 06:53 Discontinued See Protocol SUBQ Q6H Morphine Med 05/23/16 06:53 Discontinued 4 mg IV Q2H PRN PRN Ondansetron [Zofran] Med 05/23/16 06:53 Discontinued 4 mg IV Q4H PRN PRN Pantoprazole [Protonix] Med 05/23/16 09:00 Discontinued 40 mg IV Q24HR Propofol [Diprivan 1%] Med 05/23/16 01:13 Discontinued 1,000 mg in 100 ml .ROUTE As Directed Propofol [Diprivan 1%] Med 05/23/16 01:25 Discontinued 1,000 mg in 100 ml IV As Directed Sodium Chloride 0.9% Med 05/23/16 06:53 Discontinued 10 ml INJ NOW ONE Vecuronium [Norcuron] Med 05/23/16 03:02 Discontinued 10 mg .ROUTE .STK-MED ONE Vecuronium [Norcuron] Med 05/23/16 03:07 Discontinued 10 mg IV NOW ONE Aerosol Treatments Routine Oth 05/23/16 06:53 Completed Aerosol Treatments Stat Oth 05/23/16 06:53 Completed Telemetry [OM.EQ] Routine Oth 05/23/16 06:53 Active EKG [EKG] Stat Ther 05/23/16 06:53 Completed Echo Spec/Color Dop W/O Contra Routine Ther 05/23/16 09:00 Completed Transfer/Admit Order [TRANSFER] Routine Transfer 05/23/16 03:57 Completed Result Diagrams: 05/26/16 04:58 05/26/16 04:58 - REASSESSMENT Reassessment #1 Time Reassessed: 02:55 (NO EVIDENCE OF ANY HEAD INJURY AT THIS TIME) Status: unchanged Departure - Departure Time of Disposition Decision: 04:40 DIAGNOSIS: Acute respiratory failure Qualifiers: Respiratory failure complication: unspecified whether with hypoxia or hypercapnia Qualified Code(s): J96.00 - Acute respiratory failure, unspecified whether with hypoxia or hypercapnia Drug overdose Qualifiers: Injury intent: undetermined intent Disposition: ADMITTED INPATIENT 09 Certified Medical Emergency: Emergent Condition: Stable - Critical Care Note This patient required my direct personal management.: Yes Total Time (mins): 45 (DR STEPHENSON) Critical Care Statement: This patient required my direct personal management to treat or rule out processes, the absence of which, could potentiallly result in sudden, clinically significant life or limb threatening deterioration. This chart was documented by the indicated scribe, (Guire,Crystal, Scribe) and accurately reflects the services I performed and decisions made by me, Km Stephenson MD, as attested by the provider's signature.
== END 2016-05-26 13:06 | disposition home or self-care (01) ==
LOC: ED 01:12 → SUATTDRO 04:23 → ICU 04:23 → 3S 05-25 19:23
PROVIDERS: ATTEND Internal Medicine

== ENCOUNTER 2016-11-07 12:47 | Inpatient (IN) ==
[2016-11-07] MEDS ORDERED: NARCAN ONE (13:03)
[2016-11-07 13:30] LABS: MANUAL DIFF NEEDED? NO
[2016-11-07 13:41] LABS: BASO% 0.2 % (0.0-0.8); EOS# 0.03 X1000 (0.0-0.7); EOS% 0.3 % (0.0-10.0); HEMATOCRIT 44.1 % (37.0-47.0); HEMOGLOBIN 14.1 g/dL (12.0-16.0); IMM GRAN# 0.07 X1000 (0.0-0.04); IMM GRAN% 0.6 % (0.0-0.5); LYMPH# 1.87 X1000 (1.2-3.4); LYMPH% 15.7 % (20.5-51.1); MCH 31.4 PG (27-31); MCV 98.2 FL (81-99); MONO# 0.86 X1000 (0.11-0.59); MONO% 7.2 % (1.7-9.3); MPV 10.8 FL (7.4-10.4); PLT 163 X1000 (130-400); RBC 4.49 XMIL (4.2-5.4)
--- NOTE | 2016-11-07 13:43 | Diag Imaging Result Doc PS360 ---
EXAM: CHEST-PORTABLE HISTORY: AMS TECHNIQUE: AP portable at 1336 COMMENT: The inspiration is less optimal than on 06/13/2016. This is probably responsible for any difference in appearance. There is actual clearing of the right costophrenic angle compared to the previous study. IMPRESSION: Poor inspiration. No acute abnormality. Electronically signed by Keenan Mcclain 11/07/2016 1:41 PM
--- NOTE | 2016-11-07 13:47 | Diag Imaging Result Doc PS360 ---
CT HEAD/C-SPINE W/O CONTRAST - 11/07/2016 INDICATION: found on floor unresponsive TECHNIQUE: A CT dose reduction protocol was used. COMPARISON: 05/23/2016 FINDINGS: Head CT: There is some ill-defined deep white matter hypodensity at the left parietal lobe, images #32-35. No intracranial mass or hemorrhage. There is a stable cystic area at the left frontal lobe. The skull is intact. The sinuses, mastoids, and middle ears are clear. Cervical spine: Alignment is anatomic. No fracture or subluxation. Stable extensive disc degeneration at C4-5, C5-6 and C6-7. Soft tissues are clear. IMPRESSION: 1. Cannot exclude acute infarction at the left parietal lobe. A brain MRI would be recommended. 2. Cervical spondylosis but no acute injury. 3. The report was immediately called to the emergency room. Electronically signed by Víctor Fuentes 11/07/2016 1:44 PM
[2016-11-07 13:53] LABS: INR 1.03; PROTIME 10.8 Seconds (9.2-11.7); PTT 29.2 Seconds (22.0-36.0)
[2016-11-07 13:56] LABS: ALLEN TEST YES; BE 2.6 mmoll (-3.0-3.0); BLOOD TYPE ARTERIAL; DRAW SITE R RADIAL; METHB 1.2 % (0.0-1.5); O2(CT) 17.8 mL/dL (15.0-23.0); PO2(98.6) 71 mmHg (60-100); SAMPLE BLOOD; SAO2 95.7 % (95.0-100.0); THB 14.7 g/dL (11.5-17.4); pH(98.6) 7.22 (7.35-7.45)
[2016-11-07 13:57] LABS: PCO2(98.6) 81 mmHg (35-45)
[2016-11-07 13:58] LABS: MODALITY NRB
[2016-11-07 14:05] LABS: AGAP 11; ALKALINE PHOSPHATASE 79 U/L (32-104); BUN 10 mg/dL (8-22); CALCIUM 8.3 mg/dL (8.8-10.2); CHLORIDE 101 mmol/L (98-107); CK PROFILE 104 U/L (24-173); COSMO 277; GOT 11 U/L (10-30); GPT 8 U/L (10-36); POTASSIUM 4.3 mmol/L (3.5-5.1); SODIUM 139 mmol/L (136-145); TCO2 27 mmol/L (25-35); TOTAL PROTEIN 6.7 g/dL (6.3-8.3)
[2016-11-07] MEDS ORDERED: NARCAN IV ONE (14:09)
--- NOTE | 2016-11-07 14:11 | EKG Report ---
Test Performed on : 11/07/2016 1:09:32 PM Test Reason : AMS Blood Pressure : / mmHG Vent. Rate : 118 BPM Atrial Rate : 118 BPM P-R Int : 140 ms QRS Dur : 096 ms QT Int : 338 ms P-R-T Axes : 067 090 084 degrees QTc Int : 473 ms Sinus tachycardia. with occasional ventricular-paced complexes and premature supraventricular comple xes. and with frequent premature ventricular complexes. and fusion complexes Possible Left atrial enlargement Rightward axis Possible Inferior infarct , age undetermined Abnormal ECG When compared with ECG of 13-JUN-2016 10:47, Electronic ventricular pacemaker has replaced Sinus rhythm. Unconfirmed Result
[2016-11-07 14:20] LABS: URINE CULTURE NEEDED? NO; URINE MICRO REVIEW NEEDED? NO; URINE SOURCE CATH
[2016-11-07] MEDS ORDERED: XOPENEX NEB INH ONE (14:22)
[2016-11-07 14:26] LABS: BILIRUBIN URINE NEGATIVE (NEGATIVE); BLOOD URINE TRACE (NEGATIVE); COLOR YELLOW; GLUCOSE URINE NEGATIVE (NEGATIVE); LEUKOCYTES URINE NEGATIVE (NEGATIVE); NITRITE URINE NEGATIVE (NEGATIVE); PH URINE 5.5; PROTEIN URINE TRACE mg/dL (NEGATIVE); SP GRAVITY URINE 1.019; TURBIDITY URINE CLEAR (CLEAR); UROBILINOGEN URINE NORMAL (NORMAL)
[2016-11-07 14:28] LABS: UR EPITHELIAL CELLS <10 /HPF (<10); URINE BACTERIA NEGATIVE /HPF; URINE RBC <10 /HPF (<10); URINE WBC <10 /HPF (<10)
[2016-11-07] MEDS ORDERED: NS NEB INH SCH ×2 (14:30→20:04)
[2016-11-07 14:47] LABS: UR AMPHETAMINES QUAL NONE DETECTED (NONE DETECT); UR BARBITUATES QUAL NONE DETECTED (NONE DETECT); UR BENZODIAZEPIN QUAL PRESUMPTIVE POSITIVE (NONE DETECT); UR CANNABINOIDS QUAL NONE DETECTED (NONE DETECT); UR COCAINE QUAL NONE DETECTED (NONE DETECT); UR METHADONE QUAL NONE DETECTED (NONE DETECT); UR OPIATES QUAL PRESUMPTIVE POSITIVE (NONE DETECT); UR OXYCODONE QUAL NONE DETECTED (NONE DETECT); UR PCP QUAL NONE DETECTED (NONE DETECT)
[2016-11-07] MEDS: NARCAN 2 MG in NS 500 ML IV SCH (15:00)
[2016-11-07 16:18] LABS: ALLEN TEST YES; BE 2.6 mmoll (-3.0-3.0); BLOOD TYPE ARTERIAL; DRAW SITE R RADIAL; METHB 1.3 % (0.0-1.5); O2(CT) 20.1 mL/dL (15.0-23.0); PO2(98.6) 148 mmHg (60-100); SAMPLE BLOOD; SAO2 99.4 % (95.0-100.0); SRATE 20 BPM
--- NOTE | 2016-11-07 16:20 | PROVIDER DOCUMENTATION ---
This chart was entered by Janneth Sanford Scribe, acting as scribe for Arelis Vincent MD. HPI-General Adult - General Chief Complaint: Unresponsive Stated Complaint: UNRESPONSIVE Time Seen by Provider: 11/07/16 13:05 Source: family, EMS Allergies/Adverse Reactions: Patient Allergies Allergy/AdvReac Type Severity Reaction Status Date / Time No Known Allergies Allergy Verified 05/23/16 01:36 Home Medications: Home Medication List Medication Instructions Recorded Confirmed Last Taken Type Clopidogrel [Plavix] 75 mg PO DAILY 12/06/13 05/25/16 05/15/16 09:00 History Furosemide [Lasix] 40 mg PO DAILY #0 tablet 12/08/13 05/25/16 05/22/16 09:00 Rx Ranolazine E.r. [Ranexa] 500 mg PO BID 05/19/14 05/25/16 05/22/16 21:00 History AMLODIPINE/BENAZEpril [Lotrel 5/10 10 - 20 each PO DAILY 03/03/16 05/25/1605/22 09:00 History mg] Albuterol Sulfate Inhaler 2 puff INH Q6H PRN PRN #2 inhaler 03/06/16 05/25/16 21:00 Rx [Ventolin Hfa] Budesonide/Formoterol Inhaler 2 puff INH RTBID #2 inhaler 03/06/16 05/25/16 09:00 Rx [Symbicort 160/4.5 Microgm Inhaler] Clonazepam [Klonopin] 1 mg PO BID #60 tablet 03/06/16 05/25/16 05/23/16 09:00 Rx Hydrocodone/Acetaminophen [[place] 10 - 325 mg PO PRN PRN #20 tablet 03/06/1605/23/16 09:00 Rx 10-325 Tablet] Atorvastatin Calcium 1 tab PO QHS 05/25/16 05/25/16 05/22/16 21:00 History Amoxicillin/Potassium Clav 1 each PO Q12H #14 tablet 05/26/16 Unknown Rx [Augmentin 875-125 Tablet] - History of Present Illness -Gen Adult Nature of Presenting Problems: 61 yo F is brought by EMS to ED with cc of being found unresponsive by her sons this morning. Pt has cardiac hx, DM, and COPD. Sons believe it is possible pt accidentally took too many of her prescribed narcotics. Upon arrival to ED, pt spontaneously opens her eyes in response to being roused but is otherwise still unresponsive. Gag reflex is intact. Severity: reports: severe Onset/Duration: reports: abrupt, just prior to arrival Timing: reports: still present Context/Activities at Onset: reports: light activity Associated Symptoms: reports: other (unresponsive) Similar Symptoms Previously?: No Review of Systems - Adult - REVIEW OF SYSTEMS - ADULT ROS:: limited per condition Constitutional: reports: see HPI. denies: fever Eyes: reports: see HPI. denies: discharge, redness Ears, Nose, Mouth & Throat: reports: see HPI. denies: epistaxis, mouth swelling Cardiovascular: reports: see HPI Respiratory: reports: see HPI Gastrointestinal: reports: see HPI. denies: hematemesis, rectal bleeding Genitourinary: reports: see HPI Musculoskeletal: reports: see HPI Integumentary: reports: see HPI. denies: hives, rash Neurological: reports: see HPI Psychiatric: reports: see HPI Endocrine: reports: see HPI Hematologic/Lymphatic: reports: see HPI Allergic/Immunologic: reports: see HPI Past History - Adult - PAST MEDICAL HISTORY-ADULT Review of Records: reports: Old Records Reviewed, Nursing Assessment Review, Medications Reviewed Major Childhood Illnesses: reports: denies history Cardiovascular: reports: CHF, HTN Respiratory: reports: COPD Gastrointestinal: reports: denies history Obstetrical/Gynecological: reports: denies history Genitourinary: reports: denies history Musculoskeletal: reports: chronic pain Neurological: reports: denies history Endocrine/Immune: reports: Diabetes Other Conditions: reports: denies history - PRIOR SURGERIES/PROCEDURES Surgical/Procedure History: reports: CABG - IMMUNIZATION STATUS Childhood Immunizations: See Nurse Assessment Flu Vaccine: See Nurse Assessment - FAMILY HISTORY Family History: reviewed, not pertinent Physical Exam-General - PHYSICAL EXAM-ADULT Exam Limited by: Pt unrepsonsive Initial Vital Signs Reviewed: Yes - CONSTITUTIONAL General Appearance: obtunded - EYES Eyes: other (pinpoint pupils) - HEAD, EARS, NOSE, MOUTH & THROAT HENMT: moist mucous membranes - NECK Neck: full range of motion - RESPIRATORY Respiratory: lungs clear, normal breath sounds, no respiratory distress - CARDIOVASCULAR Cardiovascular: normal peripheral pulses, regular rate, rhythm - GASTROINTESTINAL (ABDOMEN) Abdominal Exam: normal bowel sounds, soft, no organomegaly, no pulsatile mass - LYMPHATIC Lymphatic: no adenopathy - MUSCULOSKELETAL Extremity: other (spontaneous movement x 4) - SKIN Integumentary: normal color, normal turgor - NEUROLOGIC Neurologic: other (spontaneously opens eyes; otherwise unresponsive to commands) Progress - PLAN OF CARE/RESULTS Progress/Plan/Lab Results: Orders Category Date Time Status Naloxone [Narcan] Med 11/07/16 13:03 Discontinued 2 mg .ROUTE .STK-MED ONE Result Diagrams: 11/07/16 13:08 11/07/16 13:08 - REASSESSMENT Reassessment #1 Time Reassessed: 14:01 (Pt returned from CT, Alfredo called to inform ED CVA could not be excluded. Pt administered narcan, awoke, was oriented fully to self and able to follow commands. When asked about what she took this morning, she responded, "Just my medicine.") Status: improving Reassessment Comment: Pt responded to narcan and displayed no indication of focal weakness. - CONSULTS/PCP/HOSPITALIST Notification #1 *Consult/PCP/Hospitalist*: Dr. Aguilar Time Discussed: 14:29 Reason/Comments: Admit pt Consult Disposition: Will see in ED Departure - Departure Date of Disposition Decision: 11/07/16 Time of Disposition Decision: 14:52 DIAGNOSIS: Altered mental status Qualifiers: Altered mental status type: coma Coma depth: [place] coma 3-8 Coma timing: in the field (EMT or ambulance) Qualified Code(s): R40.2431 - Ludwig coma scale score 3-8, in the field [EMT or ambulance] CVA (cerebral vascular accident) Qualifiers: CVA mechanism: occlusion Precerebral and cerebral artery: middle cerebral artery Laterality of affected vessel: left Qualified Code(s): I63.512 - Cerebral infarction due to unspecified occlusion or stenosis of left middle cerebral artery Drug overdose Qualifiers: Encounter type: initial encounter Injury intent: accidental or unintentional Qualified Code(s): T50.901A - Poisoning by unspecified drugs, medicaments and biological substances, accidental (unintentional), initial encounter Disposition: ADMITTED INPATIENT 09 Certified Medical Emergency: Emergent Condition: Stable Referrals and Follow-Ups: None,PCP [Primary Care Provider] - - Critical Care Note This patient required my direct & personal management of CC.: Yes Total Time (mins): 70 Critical Care Statement: This patient required my direct personal management to treat or rule out processes, the absence of which, could potentiallly result in sudden, clinically significant life or limb threatening deterioration. Attestation - Physician/ YOLI Attestation Patient care was provided by Advanced Practice Provider:: No The physician spent face to face time with patient:: Yes Advanced Practice Provider documentation review:: Supervising physician onsite and consulted in the evaluation and care of this patient. The physician did have a face to face encounter with the patient. This chart was documented by the indicated scribe, (Janneth Sanford Scribe) and accurately reflects the services I performed and decisions made by me, Arelis Vincent MD, as attested by the provider's signature.
[2016-11-07 16:21] LABS: MODALITY BI PAP; PCO2(98.6) 63 mmHg (35-45)
--- NOTE | 2016-11-07 17:18 | HISTORY AND PHYSICAL ---
PRIMARY CARE PROVIDER: No one. CHIEF COMPLAINT: Found unresponsive by sons. HISTORY OF PRESENT ILLNESS: Ms. Asha Bains is a 61-year-old, ill-appearing , female with a medical history of congestive heart failure, hypertension, diabetes, coronary artery disease, chronic pain syndrome and chronic opioid use, and recent admissions for overdose requiring intubation. She apparently has a pain specialist she sees. Upon assessing, no one was at the bedside so it was difficult to obtain information. Report given by the ER physician indicated that the sons apparently had stated that she was complaining of not been able to sleep and they felt like she had taken several Norcos. Today they apparently found her unresponsive and called 911. She presented very unresponsive although when she received 2 mg of Narcan she woke up and was able to speak her name. She has obvious respiratory acidosis and has been placed on BiPAP. A head CT given the fact that she was found on the floor was obtained which revealed that there is a possibility of left parietal lobe stroke so MRIs have been obtained. During assessment of pain stimuli the right arm was not as brisk and did not move near or withdraw near as well as the left arm. After pain stimuli she opened her eyes momentarily and when asked to wiggle her toes she did. She has been placed on a Narcan drip and we will go to ICU. PAST MEDICAL HISTORY: Congestive heart failure, hypertension, diabetes mellitus type 2, coronary artery disease status post CABG, chronic pain syndrome with chronic opioid use, anxiety. SURGICAL HISTORY: CABG. Otherwise no other surgeries were found on past medical records. SOCIAL HISTORY: According to old records she lives at home with her family, smokes a pack of cigarettes per day, does not use illicit drugs or alcohol. FAMILY HISTORY: Was unable to be obtained as patient was unresponsive. ALLERGIES: No known drug allergies. HOME MEDICATIONS: Have not been reconciled. REVIEW OF SYSTEMS: Were unable to be obtained as she was unresponsive. PHYSICAL EXAMINATION: VITAL SIGNS: Temperature is 99.3 degrees, heart rate 101, respiratory rate 20, blood pressure 166/84, O2 saturation 100% on BiPAP. She is 5 feet 2 inches tall, 170 pounds, BMI is 31.1. GENERAL: Ms. Asha Bains is a 61-year-old, ill-appearing, female who is near complete unresponsive except for will follow commands after painful stimuli. HEENT: Atraumatic, normocephalic. Pupils are 4-5 sluggish in reaction but equal. Mucous membranes are very dry. NECK: Trachea midline. CARDIOVASCULAR: S1, S2. Tachycardic rate and rhythm. No rubs, gallops, or murmurs. No JVD or carotid bruits noted. Trace lower extremity edema. +2 dorsalis and radial pulses. PULMONARY: Clear to auscultate with bilateral breath sounds. Somewhat coarse in the upper anterior lobe. Tolerating BiPAP at this time. GI: Soft, nontender, positive bowel sounds x4. EXTREMITIES: Unable to be assessed. NEURO: Verbally unresponsive. Opened eyes to painful stimuli. Moved all extremities to painful stimuli except for decreased movement and strength in the right upper extremity. Pupils are equal and sluggish. She did scream "ouch" to pain. SKIN: Warm, dry, intact. LABORATORY DATA: White blood cells 11,000, hemoglobin 14, hematocrit 44, platelet count 163,000. INR is 1.03. ABGs on 100% non-rebreather; pH 7.22, pCO2 81, PO2 71, bicarb 26, base excess 2.6, saturation 96%, carboxyhemoglobin is 8.9, lactate is 0.4. Sodium 139, potassium 4.3, BUN 10, creatinine 0.5, glucose 108. Calcium 8.3, bilirubin 0.3. AST 11, ALT 8. CK 104. Troponin less than 0.01. Urinalysis; trace protein, trace blood. Urine drug screen positive for opiates and positive for benzodiazepines. Alcohol is level. IMAGING: Chest x-ray: Poor inspiration, but no acute abnormality. EKG: Sinus tachycardia with occasional PVCs, rate is 118, QTc 473. Head/cervical spine CT Impression: Could not exclude acute infarction at the left parietal lobe. Cervical spondylosis but no acute injury. ASSESSMENT AND PLAN: 1. Toxic encephalopathy secondary to opioid intoxication. She responded well to a push of Narcan 2 mg and was started on a Narcan drip. She will respond and follow minimal simple commands to painful stimuli and withdraw extremities to painful stimuli but the right arm is weaker and slower. Pupils are equal and sluggish. We will admit to ICU on BiPAP. We will consult Pulmonary for BiPAP critical care management. 2. Acute hypercarbic respiratory failure with respiratory acidosis. Currently on BiPAP. We will repeat ABGs today and in the morning, and Pulmonary has been consulted. 3. Chronic pain syndrome with opioid use, possible abuse. We will hold those medications for now. 4. Diabetes mellitus type 2. We will do pattern blood glucoses and sliding scale insulin. 5. History of coronary artery disease. EKG is stable. Dictated by RACHAEL Price for Halle Aguilar MD cc: RACHAEL Price MD I personally performed a face to face evaluation on this patient. I agree with the assessment and plan as dictated. The patient was brought to the ER after she was found unresponsive at home. The patient will be admitted to the ICU for close monitoring. Will also start the patient on BIPAP and repeat the ABG this evening. Will likely consult pulmonary for further recommendations. KIPD
[2016-11-07 17:56] LABS: ALLEN TEST YES; BE 2.6 mmoll (-3.0-3.0); BLOOD TYPE ARTERIAL; DRAW SITE R RADIAL; METHB 1.4 % (0.0-1.5); PO2(98.6) 60 mmHg (60-100); SAMPLE BLOOD; SAO2 94.4 % (95.0-100.0); TVOL 20 mL; pH(98.6) 7.29 (7.35-7.45)
[2016-11-07 17:57] LABS: PCO2(98.6) 65 mmHg (35-45)
[2016-11-07 17:58] LABS: MODALITY BI PAP
[2016-11-07] MEDS ORDERED: ZOFRAN IV PRN (20:04)
[2016-11-07] MEDS ORDERED: TYLENOL PO PRN (20:04)
[2016-11-07] MEDS: ATROVENT NEB INH SCH ×2 (20:10→22:00)
[2016-11-07] MEDS: XOPENEX NEB INH SCH ×2 (20:10→22:00)
[2016-11-07] MEDS: HUMULIN R SUBQ SCH (20:59)
[2016-11-07] MEDS: NS 1,000 ML IV SCH (20:59)
[2016-11-07] MEDS ORDERED: SODIUM CHLORIDE 0.9% INJ SCH (21:00)
[2016-11-07] MEDS ORDERED: LIPITOR PO SCH (21:00)
[2016-11-07] MEDS ORDERED: VANCOMYCIN IV PER PHARMACY MISC SCH (21:00)
[2016-11-07] MEDS: ZOSYN 3.375 GM in NS 50 ML IV SCH (21:39)
[2016-11-07] MEDS ORDERED: VANCOMYCIN 1,900 MG in NS 500 ML IV ONE (22:00)
[2016-11-07] MEDS: SOLU-MEDROL IV SCH (22:28)
[2016-11-08] MEDS: NARCAN 2 MG in NS 500 ML IV SCH ×2 (00:07→06:13)
[2016-11-08] MEDS: ATROVENT NEB INH SCH ×4 (02:45→21:25)
[2016-11-08] MEDS: XOPENEX NEB INH SCH ×4 (02:45→21:25)
[2016-11-08] MEDS: ZOSYN 3.375 GM in NS 50 ML IV SCH ×4 (03:25→20:32)
[2016-11-08 04:12] LABS: BASO% 0.1 % (0.0-0.8); HEMATOCRIT 44.2 % (37.0-47.0); HEMOGLOBIN 14.3 g/dL (12.0-16.0); IMM GRAN# 0.07 X1000 (0.0-0.04); IMM GRAN% 0.4 % (0.0-0.5); LYMPH# 0.86 X1000 (1.2-3.4); LYMPH% 4.7 % (20.5-51.1); MANUAL DIFF NEEDED? YES; MCH 30.9 PG (27-31); MCHC 32.4 g/dL (33-37); MCV 95.5 FL (81-99); MONO# 0.83 X1000 (0.11-0.59); MONO% 4.6 % (1.7-9.3); MPV 10.7 FL (7.4-10.4); NEUT% 90.2 % (42.2-75.2); PLT 141 X1000 (130-400); RBC 4.63 XMIL (4.2-5.4)
[2016-11-08 04:21] LABS: INR 1.06; PROTIME 11.2 Seconds (9.2-11.7); PTT 29.5 Seconds (22.0-36.0)
[2016-11-08 04:25] LABS: BE -0.2 mmoll (-3.0-3.0); BLOOD TYPE ARTERIAL; METHB 1.5 % (0.0-1.5); O2(CT) 25.7 mL/dL (15.0-23.0); PCO2(98.6) 46 mmHg (35-45); PO2(98.6) 87 mmHg (60-100); SAMPLE BLOOD; SAO2 97.5 % (95.0-100.0); THB 19.2 g/dL (11.5-17.4); pH(98.6) 7.36 (7.35-7.45)
[2016-11-08 04:26] LABS: MODALITY BI PAP
[2016-11-08 04:30] LABS: BANDS 5 % (0-1); LARGE PLATELETS OCCASIONAL; LYMPHS 6 % (21-51); MONO 6 % (1-9)
[2016-11-08 04:32] LABS: AGAP 14; ALKALINE PHOSPHATASE 73 U/L (32-104); BUN 9 mg/dL (8-22); CALCIUM 8.3 mg/dL (8.8-10.2); CHLORIDE 103 mmol/L (98-107); COSMO 280; GOT 13 U/L (10-30); GPT 7 U/L (10-36); POTASSIUM 3.8 mmol/L (3.5-5.1); SODIUM 140 mmol/L (136-145); TCO2 23 mmol/L (25-35); TOTAL BILIRUBIN 0.67 mg/dL (0.20-1.00); TOTAL PROTEIN 6.1 g/dL (6.3-8.3)
[2016-11-08 05:02] LABS: ALLEN TEST YES; DRAW SITE R RADIAL
[2016-11-08] MEDS: SOLU-MEDROL IV SCH (05:17)
[2016-11-08] MEDS: HUMULIN R SUBQ SCH ×4 (06:20→20:33)
[2016-11-08] MEDS ORDERED: PROTONIX IV SCH (07:00)
--- NOTE | 2016-11-08 07:35 | Diag Imaging Result Doc PS360 ---
EXAM: CHEST-PORTABLE INDICATION: dyspnea TECHNIQUE: One view COMPARISON: 11/07/2016 FINDINGS: There is slight increased opacity at the right lung base suggesting a probable trace effusion with right basilar atelectasis and/or infiltrate. No other new infiltrate is appreciated. Cardiac silhouette is stable. IMPRESSION: Mild increased opacity at the right lung base suggesting trace effusion with adjacent atelectasis and/or infiltrate. Electronically signed by Davon Vargas 11/08/2016 7:33 AM
[2016-11-08] MEDS ORDERED: LOVENOX SUBQ SCH (08:00)
[2016-11-08] MEDS ORDERED: ASPIRIN PO SCH (09:00)
--- NOTE | 2016-11-08 09:17 | CONSULTATION ---
DATE OF CONSULTATION: 11/08/2016 REFERRING PHYSICIAN: Halle Aguilar MD. CHIEF COMPLAINT: Unresponsive. HISTORY OF PRESENT ILLNESS: This is a 61-year-old female with past medical history of CHF, hypertension, diabetes, CAD, and chronic pain, who that was brought to the hospital after being found unconscious by her family. She did have a response initially to Narcan and was placed in ICU on Narcan drip. She denies any chest pain, abdominal pain, nausea, vomiting, or diarrhea. REVIEW OF SYSTEMS: A 10-point review of systems was conducted. Pertinent on HPI, otherwise noncontributory. PAST MEDICAL HISTORY: As mentioned in the HPI, otherwise noncontributory. PAST SURGICAL HISTORY: CABG. ALLERGIES: No known drug allergies. FAMILY HISTORY: Noncontributory. SOCIAL HISTORY: The patient lives at home with her family. Smokes 1 pack per day of cigarettes, and denies the use of alcohol or illicit drugs. ACTIVE MEDICATIONS: Lovenox, Humulin R, Atrovent, Xopenex, Solu-Medrol, vancomycin, Narcan, Zofran, Protonix, Zosyn. PHYSICAL EXAMINATION: Vital Signs: Blood pressure 125/53, heart rate 89, respiratory 29, temperature 99.3, oxygen saturation 96%. General: Awake, drowsy, but becoming more alert. HEENT: Normocephalic and atraumatic. PERRL. Cardiovascular: S1, S2 present. Chest: Reduced entry. Abdomen: Bowel sounds present in all quadrants. Extremities: Distal pulses palpable. Neurologic: No focal deficits. LABS AND INVESTIGATIONS: WBC 18.16, RBC is 4.63, hemoglobin 14.3, hematocrit 44.2, platelet count 141. Sodium 140, potassium 3.8, chloride 103, carbon dioxide 23, anion gap 14, glucose 138, BUN 9, creatinine 0.5. Blood gas shows a pH 7.36, pCO2 of 46, pO2 of 87, HC03 24.7 , base excess -0.2, saturating oxygen 98. Chest x-ray reveals mild increased opacity in the right lung base. ASSESSMENT/PLAN: This is a 61-year-old female with past medical history mentioned in the HPI, who presented to the hospital unresponsive. She was placed in intensive care unit on Narcan drip for toxic encephalopathy secondary to opioid intoxication. Imaging revealed an increased opacity in the right lung base likely secondary to the aspiration type. She is on appropriate IV antibiotics. Continue BiPAP for acute hypercarbic respiratory failure with repeat ABGs, inhaled bronchodilators, GI and DVT prophylaxis, intravenous steroids, and further recommendations pending diagnostic studies.CVA is possible. Neurology is involved Thank you for the courtesy of this consult. cc: Qian Parada MD MTDD
[2016-11-08] MEDS: NS 1,000 ML IV SCH (09:30)
[2016-11-08] MEDS ORDERED: DULCOLAX PR PRN (09:43)
--- NOTE | 2016-11-08 09:52 | Diag Imaging Result Doc PS360 ---
EXAM: MRI BRAIN W/O CONTRAST INDICATION: stroke COMPARISON: CT head dated 11/07/2016. No prior MRI brain is available for comparison. FINDINGS: There is focal high signal on diffusion involving the left parietal lobe in the subcortical white matter extending to the posterior aspect of the left lateral ventricle. However, there is no corresponding low signal on the ADC map. This is compatible with an acute to subacute infarct that is probably a few days old given that there is no definite associated low signal on the ADC map. There is corresponding T2/FLAIR hyperintensity in the region. Incidentally, there is a small cystic structure in the periventricular left frontal lobe that is completely CSF signal. This was also seen on the prior CT. There is no surrounding surrounding gliosis. As such, this probably does not represent an old chronic lacunar infarct. More likely, it represents another cystic structure such as a prominent Virchow-Paul space. There is no discrete intracranial mass, mass effect, or intracranial hemorrhage. The surrounding soft tissues and bony structures are essentially unremarkable. IMPRESSION: Focal acute to subacute infarct involving the left parietal lobe as detailed above. Electronically signed by Davon Vargas 11/08/2016 9:50 AM
[2016-11-08] MEDS: LOVENOX SUBQ SCH (10:00)
[2016-11-08] MEDS ORDERED: VANCOMYCIN 1,500 MG in NS 250 ML IV SCH (10:00)
[2016-11-08] MEDS: VANCOMYCIN 1,200 MG in NS 250 ML IV SCH ×2 (10:24→21:05)
--- NOTE | 2016-11-08 10:29 | CONSULTATION ---
DATE OF CONSULTATION: 11/08/2016 Ms. Bains is 61 years old and she reports several episodes of possible altered awareness or memory gap in the last several months. She reports being uncertain about the events leading up to these episodes. She has not been aware of any focal neurologic feature. She specifically denies right hemiparesis with previous spells. She was reportedly found down by family yesterday, brought to the hospital, resuscitated with Narcan. She has chronic pain management with opioids. She reports she does not have supervision for her medicines but she is certain she did not take extra doses or take too many of her hydrocodone/acetaminophen tablets. She has been gradually more alert since admission. Workup includes labs showing WBC count 12,000, rising to 18,000. Blood sugars have ranged 100s to 140s. Calcium was 8.3. I do not see anything else remarkable in the chemistry profile. Drug screen was positive for opiates and for benzodiazepines which I believe is consistent with her reported prescriptions including hydrocodone/acetaminophen and clonazepam. Vital sign records show she has been afebrile. Systolic blood pressures have ranged 120s to 140s. Heart rate was initially in 120s but mostly 90s to 100s in the last day. Noncontrast CT raised question of left parietal lucency and showed old left frontal cystic area. Brain MRI this morning shows evidence of acute left hemisphere ischemic infarction. On exam, Ms. Bains is awake, alert, attentive. Speech is not dysarthric. Language function is intact. I did not test her cognitive function. Head and neck are unremarkable. Visual correa are full tested grossly by confrontational finger counting. Extraocular movements are full. Facial motility is symmetric. Gag is intact. Tongue is midline. She can hear. I can overcome the right deltoid grading 4/5. Tone is slightly increased in the right arm. She did rapid alternating movements well with the hands. She did well on [id number] testing bilaterally. I did not test her gait. She reports equal pinprick appreciation on brief testing over the right and left limbs. Reflexes are a little more brisk at the right wrist and ankle grading 3+ compared to 2+ on the left. Plantar response is silent bilaterally. IMPRESSION: 1. Imaging evidence of left hemisphere infarction and clinical findings of minimal right hemiparesis which may be new and may be attributed to that MRI finding. She has risk factors for cerebrovascular ischemic problems including cigarette smoking, ischemic heart disease, diabetes mellitus. She will need to be aggressive with management of those problems. Short term, we can try to allow mild hypertension if her heart will tolerate that. We can push fluids, again, as tolerated in light of her heart failure diagnosis. 2. Chronic pain and narcotics management. I encouraged her to be careful with her medicines. 3. Presentation at this time with features consistent with opiate intoxication responding to Narcan. I suspect that is the explanation for her previous events, also. I have ordered EEG to make sure there is not evidence of seizure but that seems less likely. Thanks for asking me to see Ms. Bains. cc: MD DAYANA Lucio III
[2016-11-08] MEDS ORDERED: ATIVAN IV ONE (13:14)
--- NOTE | 2016-11-08 14:10 | PROGRESS NOTE ---
DATE: 11/08/2016 SUBJECTIVE: This morning Ms. Bains refers to be doing a whole lot better. I understand she was found on the floor unresponsive however this morning mentation is completely clear. OBJECTIVE: Vital signs: Blood pressure is 154/72, pulse 81, respiration is 16, temperature 97.5 degrees. General: Ms. Bains is a 61-year-old female. She is in bed, not in any distress. HEENT: Mucosa is pink and moist. Anicteric. Acyanotic. Neck: Supple. No JVD. Chest: Good air entry bilateral. No crepitations. No rhonchi. Cardiovascular: Regular rate and rhythm. No murmurs, no rubs, no gallops. Abdomen: Soft. Bowel sounds are present. Extremities: No pedal edema. FIREARMS SPECIALIST: Patient is awake, alert, oriented x3. Able to move all extremities equally. I did not perceive any weakness on any side over the other. Patient has a very clear speech, denies any nystagmus or any visual issues. On the chest there is an old sternotomy scar which was noted. LABORATORY DATA: WBC is 18.16, hemoglobin is 14.3, platelet count of 141,000, there is only 5% of bands on peripheral smear. Chemistry is reviewed is unremarkable. An MRI of the brain shows focal acute to subacute infarction involving the left parietal lobe. ASSESSMENT: 1. Unresponsiveness on presentation. We think this probably related to medication side effects. Patient urine drug screen was positive for opioids and benzodiazepines which I understand she has been taking them chronically. Presume she probably might have taken a little bit more than she is supposed to. She was on the Narcan drip on admission. This has been turned off and patient mentation has significantly improved. 2. Left parietal lobe infarct on MRI. As I said I did not appreciate any remarkable weakness on the right or any other side over the other. Will do an MRA of the neck and the brain to make sure there is no any underlying carotid disease that needs to be taken care of. Of note, patient has other evidence on the MRI of lacunar infarcts, we will start her on aspirin and statin. 3. Vitamin D deficiency. Will replace this. 4. Coronary artery disease status post coronary artery bypass graft in the past. 5. Chronic pain syndrome with chronic opiate use. 6. So today we are going to start the patient on aspirin and statin, get MRA and MRI. I think patient white cell count went up slightly because of the steroid, I do not think it is going to lean in any acute exacerbation of chronic obstructive pulmonary disease so I will go ahead and discontinue the steroids. 7. Acute hypercarbic respiratory failure likely secondary to narcotic and sedative. This has improved. cc: Sarabjit Jolley MD
[2016-11-08] MEDS: ASPIRIN PO SCH (14:56)
--- NOTE | 2016-11-08 16:39 | Diag Imaging Result Doc PS360 ---
EXAM: MRA BRAIN W/O CONTRAST INDICATION: CVA TECHNIQUE: COMPARISON: None. FINDINGS: There is no evidence of flow-limiting stenosis, vascular malformation, or cerebral aneurysm involving the arteries comprising the little traverse of Lemus including the anterior, middle, and posterior circulations. The basilar artery and distal ICAs are unremarkable. IMPRESSION: Grossly normal MRA brain. Electronically signed by Davon Vargas 11/08/2016 4:36 PM
--- NOTE | 2016-11-08 16:46 | Diag Imaging Result Doc PS360 ---
EXAM: MRA NECK W/CONT INDICATION: CVA TECHNIQUE: COMPARISON: None. FINDINGS: There is mild atherosclerotic irregularity at the distal left common carotid artery. There is focal stenosis at the proximal external carotid arteries bilaterally. There is minimal focal narrowing involving the proximal right ICA. There is no evidence of flow-limiting stenosis involving the common carotid arteries or internal carotid arteries. The vertebral arteries appear to be widely patent throughout the courses. IMPRESSION: Mild atherosclerotic irregularity involving the distal left common carotid artery and the proximal right ICA. However, there is no evidence of flow-limiting stenosis involving the CCAs or ICAs bilaterally. Electronically signed by Davon Vargas 11/08/2016 4:44 PM
--- NOTE | 2016-11-08 19:55 | Carotid Study ---
DATE: 11/08/2016 PROCEDURE: Carotid duplex imaging. REFERRING PHYSICIAN: Dr. Aguilar INTERPRETING PHYSICIAN: ALONDRA: Luz INDICATIONS: OBSERVED DATA RIGHT LEFT Brachial Blood Pressure Carotid Pulse Bruits: Carotid/Sub DIAGRAM OF ULTRASOUND IMAGING R L RIGHT INT EXT INT EXT LEFT Dagoberto (cm/s) Dagoberto (cm/s) Subclavian 135/19 Subclavian 217/10 CCA Proximal 61/13 CCA Proximal 107/21 CCA Distal 58/16 CCA Distal 73/14 Bulb 42/8 Bulb 50/14 ICA Proximal 67/19 ICA Proximal 75/21 ICA Mid 60/18 ICA Mid 85/24 ICA Distal 90/22 ICA Distal 66/22 ECA 248/23 ECA 146/19 Vertebral 56/14, antegrade Vertebral 65/16, antegrade ICA/CCA Ratio 1.48 ICA/CCA Ratio 0.80 % Stenosis 0-39% % Stenosis 0-39% FINDINGS: There are quite extensive atherosclerotic changes noted in the right common carotid artery. This becomes more broad based in the distal and a more focal appearing plaque in the carotid bulb on the right. These, however, do not correlate with elevation of velocities or turbulence of flow. Similarly on the left, although subjectively not quite as severe, there are diffuse atherosclerotic changes in the common carotid artery and a more focal narrowing in the carotid bulb. PHYSICIAN INTERPRETATION: Atherosclerotic and plaque disease noted in bilateral carotid artery systems, although this does not correlate with elevation of velocity and estimated 0-39% stenosis bilaterally. cc: MD Itzel Varela CRNP
[2016-11-08] MEDS: TYLENOL PO PRN (21:08)
[2016-11-09] MEDS: ZOSYN 3.375 GM in NS 50 ML IV SCH ×2 (03:24→09:08)
[2016-11-09] MEDS: XOPENEX NEB INH SCH ×2 (03:25→09:57)
[2016-11-09] MEDS: ATROVENT NEB INH SCH ×2 (03:25→09:57)
[2016-11-09] MEDS: TYLENOL PO PRN (03:57)
[2016-11-09 04:31] LABS: MANUAL DIFF NEEDED? NO
[2016-11-09 04:37] LABS: BASO% 0.1 % (0.0-0.8); HEMATOCRIT 40.4 % (37.0-47.0); HEMOGLOBIN 13.6 g/dL (12.0-16.0); IMM GRAN# 0.08 X1000 (0.0-0.04); IMM GRAN% 0.5 % (0.0-0.5); LYMPH# 2.02 X1000 (1.2-3.4); LYMPH% 11.5 % (20.5-51.1); MCH 31.7 PG (27-31); MCHC 33.7 g/dL (33-37); MCV 94.2 FL (81-99); MONO# 1.27 X1000 (0.11-0.59); MONO% 7.2 % (1.7-9.3); MPV 11.2 FL (7.4-10.4); NEUT% 80.7 % (42.2-75.2); PLT 157 X1000 (130-400); RBC 4.29 XMIL (4.2-5.4)
[2016-11-09 05:26] LABS: AGAP 10; ALBUMIN 3.3 g/dL (3.5-5.0); ALKALINE PHOSPHATASE 60 U/L (32-104); BUN 15 mg/dL (8-22); CALCIUM 8.7 mg/dL (8.8-10.2); CHLORIDE 108 mmol/L (98-107); COSMO 285; GOT 8 U/L (10-30); GPT 6 U/L (10-36); POTASSIUM 3.6 mmol/L (3.5-5.1); SODIUM 143 mmol/L (136-145); TCO2 25 mmol/L (25-35); TOTAL BILIRUBIN 0.39 mg/dL (0.20-1.00); TOTAL PROTEIN 5.9 g/dL (6.3-8.3)
[2016-11-09] MEDS: HUMULIN R SUBQ SCH ×2 (06:12→11:51)
[2016-11-09] MEDS ORDERED: PRILOSEC PO SCH (07:00)
--- NOTE | 2016-11-09 07:49 | Diag Imaging Result Doc PS360 ---
EXAM: CHEST-PORTABLE INDICATION: dyspnea TECHNIQUE: One view COMPARISON: 11/08/2016 FINDINGS: The opacity at the right lung base appears to have slightly improved. The patient is slightly rotated to the left. No definite new consolidation is identified given slight differences in positioning. The cardiac silhouette is approximately stable. IMPRESSION: Interval slight improvement of the opacity at the right lung base. Stable chest, otherwise. Electronically signed by Davon Vargas 11/09/2016 7:47 AM
[2016-11-09 08:41] VITALS: BP 136/62
[2016-11-09] MEDS ORDERED: LIPITOR PO SCH (09:00)
[2016-11-09] MEDS: LOVENOX SUBQ SCH (09:08)
[2016-11-09] MEDS: ASPIRIN PO SCH (09:08)
[2016-11-09] MEDS ORDERED: VANCOMYCIN 1,400 MG in NS 250 ML IV SCH (11:00)
--- NOTE | 2016-11-09 14:39 | DISCHARGE SUMMARY ---
ADMISSION DATE: 11/07/2016 DISCHARGE DATE: 11/09/2016 DISPOSITION: Home. FOLLOWUP: 1. PCP. 2. Dr. Faith. INVASIVE PROCEDURES: None. IMAGING STUDIES: Of significant. A CT scan of the head and cervical spine was done which was unremarkable. An MRI of the brain was done which showed focal acute to subacute infarction involving the left parietal lobe. Carotid Doppler study was done which shows no critical stenosis. An MRA of the brain grossly normal. An MRA of the neck shows mild atherosclerotic irregularities none critical. A chest x-ray this morning shows slight improvement of the opacity at the left lung base. CONSULTATION DURING THIS ADMISSION: Neurology was consulted. Patient was seen by Dr. Faith. Pulmonary medicine was consulted. Patient was seen by Dr. Parada. ADMISSION DIAGNOSES: 1. Toxic encephalopathy secondary to opioid intoxication. 2. Acute hypercarbic respiratory failure. 3. Chronic pain syndrome, possible abuse. 4. Diabetes mellitus. 5. History of coronary artery disease. DIAGNOSIS AT THE TIME OF DISCHARGE: 1. 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 2. Left parietal lobe infarct on MRI, no residual motor deficit. 3. Vitamin D deficiency. 4. History of coronary artery disease status post coronary artery bypass graft. 5. Chronic pain syndrome. 6. Chronic obstructive pulmonary disease. 7. 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 8. Suspected aspiration. DISCHARGE MEDICATIONS: 1. Clopidogrel 75 mg daily. 2. Furosemide 40 mg daily. 3. Ranexa 500 b.i.d. 4. Amlodipine/benazepril 1 tablet daily. 5. Ventolin inhaler. 6. Symbicort inhaler. 7. Atorvastatin 80 mg daily. 8.[id number] mg b.i.d. 9. Aspirin 325 daily. PRESENTING COMPLAINT: Altered mental status (unresponsiveness). HISTORY OF PRESENTING COMPLAINT: Ms Bains is a 61-year-old female with a history of chronic pain syndrome on multiple sedatives and opioids medication also congestive heart failure, hypertension, coronary artery disease who presented to the emergency department because the son found him her unresponsive. Upon presentation patient was found to have a CO2 81 with UDS positive for opioids and benzodiazepine. It was it was presumed that the patient had overdosed on her prescription drugs, was subsequently admitted to the ICU. HOSPITAL COURSE: Patient did pretty well during the hospital stay. An MRI did reveal that she had a left parietal infarct. Patient did not have any obvious motor deficit. Apparently she was supposed to be on clopidogrel because of coronary artery disease and on top of that she did have an infarct and even multiple chronic ischemic changes in the brain. We therefore added aspirin. Patient will continue with her atorvastatin. During the hospital stay her mentation remarkably improved on the Narcan drip which was subsequently discontinued. Patient was evaluated with speech she. She was able to tolerate her diet. Today she is completely asymptomatic. White cell count was a little bit elevated but we thought patient had aspiration pneumonia and also she was given some steroids as well. This is trending down. Patient will continue with Augmentin for 7 days for the supposed aspiration pneumonitis. Patient will also continue with her oxygen needs at home. She is currently saturating 99% on 3 L. In general I think Ms Bains is remarkably stable, has significantly improved from when she came in. PHYSICAL EXAM: Vitals: This morning blood pressure is 136/62, pulse of 81, respirations 17, temperature 97.7 degrees. Chest: Is clear. Cardiovascular: Regular rate and rhythm. SUBSEA ENGINEER: Patient is awake and alert and oriented. No focal neurological deficit. Patient will therefore be discharged in stable condition. She will follow up with her primary care doctor. We spent more than 15 minutes discussing about the risk of abusing prescription drugs including the sedatives and opioids. I have therefore discontinue her medications and have advised her to follow up with her primary care doctor to reassess her needs for those medications before she starts taking them back. TIME SPENT FOR DISCHARGE: 35 minutes. cc: Sarabjit Jolley MD MTDAlex
[2016-11-09] MEDS ORDERED: AUGMENTIN PO SCH (21:00)
--- NOTE | 2016-11-11 18:20 | EEG REPORT ---
DATE: 11/08/2016 COMMENT: This is a digitally recorded EEG on a 61-year-old patient with transient poor responsiveness associated with likely opiate ingestion. FINDINGS: Most of the record is dominated by rhythmic 6-7 hertz activity across the hemispheres. Some of this is dominant posteriorly around 7 Hz. There is some slowing into the delta range briefly frontally. Muscle contraction artifacts are present at times. Photic stimulation did not significantly alter the record. No definite epileptiform discharge was identified. INTERPRETATION: Abnormal EEG because of mild generalized slowing. CORRELATION: This is indicative of diffuse encephalopathy and is nonspecific, but would correlate with toxic encephalopathy. The absence of epileptiform discharges on a single EEG does not exclude a clinical diagnosis of seizure, but there is nothing on this record to suggest a seizure as the reason for her recent poor responsiveness. cc: Ryne Faith III, MD
== END 2016-11-09 13:20 | disposition home or self-care (01) ==
LOC: ED 12:47 → EDIPHOLD 16:06 → SUATTDRO 16:06 → ICU 20:11
PROVIDERS: ATTEND Internal Medicine